=== PATIENT | male | born 1985 | race African-American/Black ===

== ENCOUNTER 2022-01-15 20:44 | Emergency (ER) | payer MEDICAID ==
[~2022-01-15] VITALS: Ht 172.7 cm; Wt 93.0 kg
[2022-01-15 21:08] VITALS: BP 128/77
== END 2022-01-16 00:54 | disposition left against medical advice (07) ==
LOC: ER 20:44
DX: R51.9 Headache, unspecified (principal); M54.2 Cervicalgia; H53.8 Other visual disturbances; Z53.21 Procedure and treatment not carried out due to patient leaving prior to being seen by health care provider